=== PATIENT | female | born 1950 | race Caucasian/White ===

== ENCOUNTER 2021-04-25 22:21 | Inpatient (IN) | payer MEDICARE, OTHER ==
[~2021-04-25] VITALS: Ht 167.6 cm; Wt 59.0 kg
[2021-04-25] MEDS ORDERED: IV NORMAL SALINE 1000 ML BAG IV ONE (22:45)
[2021-04-25] MEDS ORDERED: ONDANSETRON 4 MG/2 ML VIAL IV ONE (22:45)
[2021-04-25] MEDS ORDERED: MORPHINE SULFATE 2 MG/1 ML DISP.SYRIN IV ONE (22:45)
--- NOTE | 2021-04-25 23:01 | NUR ---
Patient out of unit for ct scan via wheelchair.
[2021-04-25 23:18] LABS: HEMATOCRIT 45.6 % (31.2-41.9); MEAN CORPUSCULAR VOLUME 91.6 fL (75.5-95.3); PLATELET COUNT (AUTO) 441 K/uL (179-408)
[2021-04-25 23:21] LABS: BILIRUBIN,DIRECT 0.1 mg/dL (0.0-0.2); BILIRUBIN,TOTAL 0.4 mg/dL (0.2-1.0); CREATININE 1.6 mg/dL (0.6-1.3); POTASSIUM 3.7 mmol/L (3.5-5.1); TOTAL PROTEIN, SERUM 8.7 g/dL (6.4-8.2)
[2021-04-25] MEDS ORDERED: ONDANSETRON 4 MG/2 ML VIAL ONE (23:38)
[2021-04-25] MEDS ORDERED: MORPHINE SULFATE 2 MG/1 ML DISP.SYRIN ONE (23:39)
--- NOTE | 2021-04-26 02:57 | NUR ---
CALLED PSYCHIATRIC FOR PANEL CALL, BRIGIDO LEA.
[2021-04-26] MEDS ORDERED: MORPHINE SULFATE 2 MG/1 ML DISP.SYRIN IV ONE (03:30)
[2021-04-26] MEDS ORDERED: ONDANSETRON 4 MG/2 ML VIAL IV ONE (03:30)
[2021-04-26] MEDS ORDERED: MORPHINE SULFATE 2 MG/1 ML DISP.SYRIN ONE (03:37)
[2021-04-26] MEDS ORDERED: ONDANSETRON 4 MG/2 ML VIAL ONE (03:37)
[2021-04-26] MEDS ORDERED: MAGNESIUM HYDROXIDE 30 ML LIQUID UDC PO PRN (03:45)
[2021-04-26] MEDS ORDERED: ACETAMINOPHEN 325 MG TABLET PO PRN (03:45)
[2021-04-26] MEDS ORDERED: Z GUARD REMEDY PASTE 57 GM TUBE TOP PRN (03:45)
[2021-04-26] MEDS ORDERED: BENA20TA9 PO (03:51)
[2021-04-26] MEDS ORDERED: GABA600T12 PO (03:51)
[2021-04-26] MEDS ORDERED: AMLO10TA59 PO (03:51)
[2021-04-26] MEDS ORDERED: QUET300T2 PO (03:51)
--- NOTE | 2021-04-26 05:17 | NUR ---
Patient is resting comfortably in bed with eyes closed.
--- NOTE | 2021-04-26 05:54 | NUR ---
GAVE REPORT TO REMA.
--- NOTE | 2021-04-26 06:30 | NUR ---
Pt. admitted to [facility], under care of Aiyana Armando Dx: small bowel obstruction Belongs List completed
[2021-04-26 06:40] VITALS: BP 141/69
--- NOTE | 2021-04-26 06:40 | NUR ---
RECEIVED PATIENT VIA GURNEY FROM ER. PATIENT IS A/O X3. NGT NOTED TO RIGHT NARES, CLAMPED AT THIS TIME, WAITING FOR FURTHER ORDERS. VSS. PATIENT C/O PAIN. WAITING FOR RN WATER VALVE MECHANIC TO BE MORPHINE. CALL LIGHT IN REACH. ALL NEEDS ATTENDED.
[2021-04-26] MEDS: MORPHINE SULFATE 2 MG/1 ML DISP.SYRIN IV PRN ×4 (06:54→21:30)
[2021-04-26] MEDS ORDERED: MORPHINE SULFATE 4 MG/1 ML DISP.SYRIN ONE (06:58)
[2021-04-26] MEDS ORDERED: PANTOPRAZOLE SODIUM IV 40 MG in IV DEXTROSE 5% 100 ML IV SCH (09:00)
--- NOTE | 2021-04-26 09:00 | NUR ---
New order to place patient on low intermittent suction and to offer moistened swabs but keep patient on strict NPO, noted and carried out.
[2021-04-26] MEDS: PANTOPRAZOLE SODIUM 40 MG VIAL IV SCH (09:05)
[2021-04-26] MEDS: HEPARIN SODIUM,PORCINE 5,000 UNITS/ML VIAL SQ SCH ×2 (09:06→20:38)
[2021-04-26] MEDS: ONDANSETRON 4 MG/2 ML VIAL IV PRN ×2 (09:33→16:34)
[2021-04-26] MEDS: IV NS 1000 ML 1,000 ML IV PRN ×2 (10:04→21:35)
[2021-04-26 12:24] VITALS: BP 136/72
[2021-04-26 16:18] VITALS: BP 130/59
[2021-04-26 20:00] VITALS: BP 145/67
[2021-04-26] MEDS ORDERED: Medication Not On Formulary EA (Gabapentin 600 MG) PO SCH (21:00)
[2021-04-26] MEDS ORDERED: Medication Not On Formulary EA (Quetiapine Fumarate (Seroquel) 300 MG) PO SCH (21:00)
[2021-04-26] MEDS ORDERED: GABAPENTIN 300 MG CAPSULE PO SCH ×2 (21:00)
[2021-04-26] MEDS ORDERED: QUETIAPINE FUMARATE 200 MG TABLET PO SCH (21:00)
[2021-04-27] MEDS ORDERED: LORAZEPAM 2 MG/1 ML VIAL IV ONE (01:00)
--- NOTE | 2021-04-27 01:30 | NUR ---
Patient in bed anxious, requesting if she could have something to help her sleep.Patient remain NPO.Isamar Cabrera notified with new order received noted and carried out. Ativan 1mg IVP given.Midline inserted by midline nurse on left Upper arm 18g.No active bleeding noted.Patent and intact.Will continue to monitor.
--- NOTE | 2021-04-27 04:55 | NUR ---
Patient accidentally pulled out her NGt .Inserted new NGt on right nare tolerated well. Placed order for chest xray for NG tube placement.HOB remain elevated.Patient able to ambulates to bathroom.
[2021-04-27] MEDS: PANTOPRAZOLE SODIUM 40 MG VIAL IV SCH (08:57)
[2021-04-27] MEDS: HEPARIN SODIUM,PORCINE 5,000 UNITS/ML VIAL SQ SCH (08:58)
[2021-04-27] MEDS ORDERED: AMLODIPINE 10 MG TABLET PO SCH (09:00)
[2021-04-27] MEDS ORDERED: BENAZEPRIL HCL 20 MG TABLET PO SCH (09:00)
[2021-04-27] MEDS: MORPHINE SULFATE 2 MG/1 ML DISP.SYRIN IV PRN (09:06)
[2021-04-27 09:20] LABS: CREATININE 0.9 mg/dL (0.6-1.3); MAGNESIUM 2.7 mg/dL (1.8-2.4); PHOSPHOROUS 2.3 mg/dL (2.5-4.9); POTASSIUM 3.9 mmol/L (3.5-5.1)
[2021-04-27 10:06] LABS: HEMATOCRIT 34.5 % (31.2-41.9); MEAN CORPUSCULAR VOLUME 94.3 fL (75.5-95.3); PLATELET COUNT (AUTO) 328 K/uL (179-408)
--- NOTE | 2021-04-27 10:36 | NUR ---
patient was stopped by security downstairs, per patient i thought i could leave and i ordered an uber. patient was reminded that if she wanted to leave AMA that there were forms to be signed, patient states "no, i guess im confused" reminded patient that Katerine CURTIS and Dr. Gooden spoke to her this morning and that they notified her that there were no discharge orders at this time. patient states "i understand" reminded patient to stay in room and call for assistance. per patient "ok"
[2021-04-27 11:55] VITALS: BP 119/70
--- NOTE | 2021-04-27 13:10 | NUR ---
patient states i want to leave, explained to patient there are no discharge orders at this time. patient wishes to leave against medical advice. all paperwork signed. Katerine CURTIS informed. patient ripped out midline, stated i took it out im in a hurry. patient ambulated downstairs safely.
--- NOTE | 2021-04-27 13:21 | NUR ---
TONIO incident report completed Id number [id number]
[2021-04-27 13:40] LABS: *BILIRUBIN,URIN NEGATIVE (NEGATIVE); *BLOOD, URINE NEGATIVE (NEGATIVE); *CLARITY,URINE SLIGHTLY CLOUDY (CLEAR); *COLOR,URINE YELLOW (YELLOW); *KETONES,URINE 2+ (NEGATIVE); *UROBILINOGEN,URINE 0.2 E.U./dl (NORMAL); LEUKOCYTE ESTERASE ,URINE NEGATIVE (NEGATIVE); NITRITE, URINE NEGATIVE (NEGATIVE); UGLUCOSE NEGATIVE (NEGATIVE)
[2021-04-27 14:01] LABS: BACTERIA,URINE FEW /HPF (NONE SEEN); RBC,URINE 0-3 /HPF (0-3); SQUAMOUS EPITHELIAL CELL,UR FEW /HPF (NONE SEEN); TRIPLE PHOSPHATE CRYSTAL,UR FEW /HPF (NONE SEEN)
[2021-04-28] MEDS ORDERED: PANTOPRAZOLE SODIUM 40 MG TABLET.DR PO SCH (07:00)
== END 2021-04-27 13:21 | disposition left against medical advice (07) | DRG 389 ==
LOC: ER 22:24 → MEDSURG3 04-26 06:02
PROVIDERS: ADMIT Registered Nurse; ATTEND Registered Nurse
PROC: 05H533Z Insertion of Infusion Device into Right Subclavian Vein, Percutaneous Approach (ICD-10-PCS; principal; 2021-04-27)
PROC: B546ZZA Ultrasonography of Right Subclavian Vein, Guidance (ICD-10-PCS; 2021-04-27)
DX: K56.50 Intestinal adhesions [bands], unspecified as to partial versus complete obstruction (principal); N17.9 Acute kidney failure, unspecified; I31.3 Pericardial effusion (noninflammatory); E86.0 Dehydration; Z90.710 Acquired absence of both cervix and uterus; Z90.49 Acquired absence of other specified parts of digestive tract; I10 Essential (primary) hypertension; D72.829 Elevated white blood cell count, unspecified; Z20.822 Contact with and (suspected) exposure to COVID-19; F17.210 Nicotine dependence, cigarettes, uncomplicated
CPT/HCPCS: 36415; 70030-TC; 71045; 74018; 74250; 83605; 83690; 83735; 84100; 85025; 87040; 87086; 93005; 93307; A4663; C9113; G0378; J1644; J2060; J2270; J2405; J7030